=== PATIENT | male | born 1970 | race Caucasian/White ===

== ENCOUNTER 2021-01-07 07:35 | Day surgery (SDC) | payer OTHER ==
[2021-01-05 11:36] VITALS: BMI 26.3
[~2021-01-07 07:35] MED LIST: LACTATED RINGERS 1,000 ML IV SCH; LIDOCAINE 1% (10MG/ML) FOR IV START INTRADERMA PRN
[2021-01-07 08:29] VITALS: TEMP 98
[2021-01-07 08:42] LABS: Glucose,Whole Blood 127 mg/dL (75-99)
[2021-01-07] MEDS ORDERED: PROPOFOL 10 MG/ML 20 ML VIAL IV ONE (08:45)
--- NOTE | 2021-01-07 09:08 | P.PCN ---
Date of Procedure: 01/07/21 Preoperative Diagnosis: Change in bowels Screening Postoperative Diagnosis: Cecal polyp Procedure(s) Performed: Colonoscopy with polypectomy, hot snare Anesthesia: MAC Pathology: other (Cecal polyp) Condition: stable Disposition: same day Indications for Procedure: 50-year-old male presents today for screening colonoscopy. He also has noted some change in his bowel function with frequent loose stool. He was excellent risks, benefits and alternatives to the procedure and did provide consent prior to attending the endoscopy suite. Operative Findings: Cecal polyp Description of Procedure: The patient was brought to the endoscopy suite and placed in left lateral decubitus position and adequate sedation was achieved using conscious sedation. A digital rectal exam was performed and mild internal hemorrhoids were palpated. An endoscope was then placed in the rectum and advanced to the cecum as identified by landmarks including the appendiceal orifice and the ileocecal valve. The prep was good. The colonoscope was slowly withdrawn, examining for any mucosal abnormalities. The cecum, ascending, transverse, descending and sigmoid colon were visualized adequately. There were no large neoplastic lesions noted throughout the colon. A small polyp was noted in the cecum. This was removed with hot snare polypectomy. Hemostasis was maintained. There is no evidence of diverticulosis. Retroflexion was performed in the rectum and mild internal hemorrhoids were visible. Excess air was removed, the colonoscope withdrawn and the procedure terminated. The patient was then transferred to the recovery unit in stable condition. Repeat colonoscopy should be performed in 5 years.
[2021-01-07 09:24] VITALS: BP 121/80; PULSE 73; RESP 16
== END 2021-01-07 09:51 | disposition home or self-care (01) ==
LOC: ORWHC2ENDO 07:35
PROVIDERS: ATTEND Surgery
DX: Z12.11 Encounter for screening for malignant neoplasm of colon (principal); D12.0 Benign neoplasm of cecum; E78.5 Hyperlipidemia, unspecified; E11.9 Type 2 diabetes mellitus without complications; K21.9 Gastro-esophageal reflux disease without esophagitis; Z79.84 Long term (current) use of oral hypoglycemic drugs; Z79.899 Other long term (current) drug therapy
CPT/HCPCS: 88305; 45385; J2704

== ENCOUNTER → 2022-02-10 | Outpatient (CLI) | payer OTHER ==
[2022-02-10 18:27] LABS: Chol/HDL Ratio 5.29 Ratio
== END | disposition home or self-care (01) ==
LOC: LABWHC1 11:40
PROVIDERS: ATTEND Family Medicine
DX: E78.00 Pure hypercholesterolemia, unspecified (principal)
CPT/HCPCS: 36415; 80061

== ENCOUNTER → 2022-07-14 | Outpatient (CLI) | payer OTHER ==
[2022-07-14 20:06] LABS: African American GFR (CKD) 114.2 (60.0-200.0); Albumin 5.1 g/dL (3.8-4.9); Albumin/Globulin Ratio 1.89 (1.60-3.17); Anion Gap 12.8 mmol/L (10.00-18.00); BUN/Creat Ratio 29.33 Ratio (12.00-20.00); Blood Urea Nitrogen 26.4 mg/dL (9.0-27.0); Calcium 9.6 mg/dL (8.7-10.3); Carbon Dioxide 23.2 mmol/L (20.0-27.5); Globulin 2.7 g/dL (1.6-3.3); Non-African American GFR(CKD) 98.5 (60.0-200.0); Potassium 4.6 mmol/L (3.5-5.5); Total Bilirubin 1.2 mg/dL (0.30-1.20); Total Protein 7.8 g/dL (6.2-8.2)
[2022-07-14 20:27] LABS: C-Peptide 2.9 ng/mL (0.81-3.85)
== END | disposition home or self-care (01) ==
LOC: LABWHC1 11:53
PROVIDERS: ATTEND Registered Nurse
DX: E11.65 Type 2 diabetes mellitus with hyperglycemia (principal)
CPT/HCPCS: 36415; 80053; 83519; 84681; 86341